=== PATIENT | male | born 1955 | race Caucasian/White ===

== ENCOUNTER 2023-07-31 10:55 | Outpatient (OUT) | payer MEDICARE, SELFPAY ==
--- NOTE | 2023-07-31 11:06 | XR_ITS ---
The [address] [address] Patient Name: VARSHA WHITE MRN: [id number] date: 1955 Sex: M Assigned Patient Location: [facility] Current Patient Location: Accession/Order Number: [id number] Exam Date: 07/31/2023 11:22 Report Date: 08/03/2023 07:47 At the request of: LOVE PORTER Procedure: XR abdomen 1V EXAMINATION: XR abdomen 1V HISTORY: Kidney Stone N20.0 COMPARISON: No relevant comparison available. FINDINGS: KIDNEY/URETER - RIGHT: Punctate nephrolithiasis KIDNEY/URETER - LEFT: Punctate nephrolithiasis PELVIS: No visible ureteral calcifications. Any visible calcifications favor phleboliths. BOWEL: No abnormal dilation or deviation. BONES: Moderate bilateral hip osteoarthritis. Moderate to severe degenerative changes of the spine OTHER: Negative. No abnormal gaseous collections. XR/XR abdomen 1V IMPRESSION: Bilateral nephrolithiasis Electronically authenticated by: OG BUNDY Date: 08/03/2023 07:47
== END 2023-07-31 10:56 | disposition home or self-care (01) ==
LOC: RAD 10:59
PROVIDERS: PCP Family Medicine; Visit Provider Urology
DX: N20.0 Calculus of kidney (principal)
CPT/HCPCS: 74018

== ENCOUNTER 2025-01-27 01:42 | Emergency (ER) | payer MEDICARE, SELFPAY ==
--- OUTSIDE RECORDS SUMMARY | 2024-09-28 05:00 | XMS_ITS ---
Author Organization The [facility] in [place] Address [address] [place] [address] Care Team Providers Care Opener Name Role Phone Matt MULLIGAN, Anderson Primary Care Provider Eleazar Devine Unavailable [phone] REASON FOR VISIT 1YEAR-PULMONARY NODULE, COUGH/CT Encounters Encounter Location Date Provider Diagnosis Pulmonary Medicine [place] [address] [place] [address] 09/28/2024 Eleazar Larose Plan Of Treatment No Information Progress Notes * Emmett MATOS ADOB: (69 yo M)Acc No.[id number]:09/28/2024 UNLOCKED PROGRESS NOTE Follow Up Patient: Mike Emmett LOVE :?Eleazarbarbara Larose DODOB:1955???Age:69 Y ???Sex:MaleDate:09/28/2024Phone:[phone]:[facility] [address] [place], [place]-[address]Pcp:Anderson Gutierrez MD Subjective: * Chief Complaints: * 1 . 1YEAR-PULMONARY NODULE, COUGH/CT. * Medical History: Objective: * Vitals: Assessment: Plan: * Treatment: * * Electronic signature of Eleazar Larose DO on 01/27/2025 at 03:22 AM ESTSign off status: PendingVisit Status:?OFF CANC (OFFICE CANCEL) * Provider: Woodrow Larose DO Date: 0 09/28/2024 Generated for Printing/Faxing/eTransmitting on:?01/27/2025 03:22 AM EST
--- OUTSIDE RECORDS SUMMARY | 2025-01-25 10:00 | XMS_ITS | Encounter Summary ---
Author Organization [facility] Address [address] [facility] [place] [place] [address] Care Team Providers Care Ab Initio Etl Developer Name Role Phone Anderson Gutierrez MD Primary Care Provider [phone] Reason for Visit * ReasonCommentsPost-op Follow-up Encounter Details DateTypeDepartmentCare Team (Latest Contact Info)Bdzsmhciayk61/17/2025 10:00 AM ESTOffice Visit [facility] [address] [place] [address] Rashad Richardson DO [address] [place] [address] Pseudophakia (Primary Dx); Primary open angle glaucoma (POAG) of left eye, mild stage Social History Tobacco UseTypesPacks/DayYears UsedDateSmoking Tobacco: NeverSmokeless Tobacco: NeverAlcohol UseStandard Drinks/WeekCommentsYes0 (1 standard drink = 0.6 oz pure alcohol)Sex and Gender InformationValueDate RecordedSex Assigned at BirthNot on fileLegal WcmHluz5704/23/2022 7:21 PM EDTGender IdentityNot on fileSexual OrientationNot on filedocumented as of this encounter Progress Notes * Rashad Richardson DO - 01/25/2025 10:00 AM EST Images from the original note were not included. Assessment/Plan Diagnoses and all orders for this visit: Pseudophakia - s/p CE OS (1mth): Patient should be close to off all post-op meds. Pt. received final refraction for this eye today. Primary open angle glaucoma (POAG) of left eye, mild stage - status post (s/p) Express shunt right eye (OD) and Hydrus shunt left eye (OS). Not on drops (gtts) at this time. documented in this encounter Plan of Treatment DateTypeDepartmentCare Team (Latest Contact Info)Rsfugrdhjqk63/19/2026 9:00 AM EDTOffice Visit [facility] [address] [place] [address] Rashad Richardson DO [address] [place] [address] documented as of this encounter Visit Diagnoses Diagnosis Pseudophakia- Primary Lens replaced by other means Primary open angle glaucoma (POAG) of left eye, mild stage documented in this encounter Care Teams Team MemberRelationshipSpecialtyStart DateEnd Date Anderson Gutierrez MD [address] [place] [address] PCP - GeneralFamily Medicine02/27/23documented as of this encounter
[2025-01-27 01:53] VITALS: BP 173/97; PULSE 95; O2SAT 98; BMI 35.5
--- NOTE | 2025-01-27 02:02 | XR_ITS ---
The [address] [address] Patient Name: VARSHA WHITE MRN: [id number] date: 1955 Sex: M Assigned Patient Location: ER Current Patient Location: Accession/Order Number: [id number] Exam Date: 01/27/2025 02:10 Report Date: 01/27/2025 09:07 At the request of: KAMERON GRIFFIN MD Procedure: XR finger RT min 2V RIGHT THUMB - 3 views CLINICAL DATA: Patient sliced right thumb with a table saw. COMPARISON: None Three views were obtained, all of which are essentially lateral. A 6 mm irregular density projects along the volar aspect of the distal interphalangeal joint. This is not a clear sesamoid or fracture fragment given the lack of an obvious donor site. It is uncertain if it could be a radiopaque foreign body. There does appear to be laceration and possibly an overlying bandage. The bony structures are otherwise intact. No dislocation is identified. Degenerative change at the first carpometacarpal joint and minor at the metacarpal phalangeal joint. XR/XR finger RT min 2V IMPRESSION: INDETERMINATE DENSITY ALONG THE VOLAR ASPECT OF THE DISTAL INTERPHALANGEAL JOINT OF THE THUMB. CLINICAL CORRELATION IS SUGGESTED. Impression dictated by: Lisandra Samuels M.D. 01/27/2025 9:07 AM Dictation Location: [place] [address] Electronically authenticated by: [id number] Y Date: 01/27/2025 09:07
[2025-01-27] MEDS: DIPHTH,PERTUSS(ACELL),TET VAC 0.5 ML SYRINGE IM (02:13)
[2025-01-27] MEDS: AMPICILLIN SODIUM/SULBACTAM NA 3 GM in 0.9 % SODIUM CHLORIDE 100 ML IV (02:15)
[2025-01-27] MEDS: OXYCODONE HCL/ACETAMINOPHEN 5MG/325MG 1 TAB PO (03:00)
--- OUTSIDE RECORDS SUMMARY | 2025-01-27 03:22 | XMS_ITS | Clinical Summary ---
Author Organization [employer] Address [facility] [address] [place] [address] Care Team Providers Care Knitted Garment Finisher Name Role Phone Unavailable Primary Care Provider Unavailabl e Allergies No known active allergies Medications MedicationSigDispense QuantityRefillsLast FilledStart DateEnd DateStatus tamsulosin (FLOMAX) 0.4 mg capsule 11/28/2021ctive mycophenolate (CELLCEPT) 500 mg tablet mycophenolate mofetil 500 mg tabletActive pyridostigmine (MESTINON) 60 mg tablet pyridostigmine bromide 60 mg tabletActive simvastatin (ZOCOR) 40 mg tablet simvastatin 40 mg tabletActive FLUoxetine (PROzac) 10 mg capsule fluoxetine 10 mg capsuleActive benzonatate (TESSALON PERLES) 200 mg capsule TAKE 1 CAPSULE BY MOUTH EVERY 8 HOURS FOR COUGH01/13/2022ctive buPROPion (WELLBUTRIN) 75 mg tablet bupropion HCl 75 mg tabletActive clotrimazole (LOTRIMIN) 1 % external solution clotrimazole 1 % topical solutionActive cyclobenzaprine (FLEXERIL) 5 mg tablet 3 (three) times a day.Active triamcinolone acetonide (KENALOG) 10 mg/mL injection Kenalog 10 mg/mL suspension for injection by inj routeActive Social History Tobacco UseTypesPacks/DayYears UsedDateSmoking Tobacco: Never AssessedAlcohol UseStandard Drinks/WeekCommentsYes1 (1 standard drink = 0.6 oz pure alcohol) occasionallyPHQ-2AnswerDate RecordedTotal Rdwww5333ChildcareAnswerDate TlvmrmppBjwujvxraWtyislu27/12/2019EmploymentAnswerDate RecordedEmploymentUnknown 07/21/2018Hunger ScreeningAnswerDate RecordedWithin the past 12 months we worried whether our food would run out before we got money to buy more.Never True02/12/2022Within the past 12 months the food we bought just didn't last and we didn't have money to get more.Never True02/12/2022Sex and Gender Information ValueDate RecordedSex Assigned at BirthNot on fileLegal RrvEhne2309/14/2014 12:10 PM EDTGender IdentityNot on fileSexual OrientationNot on file Last Filed Vital Signs Vital SignReadingTime TakenCommentsBlood Cuqnhjud553/7211/20/2022 1:08 PM EDT Jplky040711/20/2022 1:08 PM EDTTemperature--Respiratory Rate--Oxygen Saturation-- Inhaled Oxygen Concentration--Cskczl21.9 kg (218 lb)11/20/2022 1:08 PM EDTHeight 167.6 cm (5' 6 )11/20/2022 1:08 PM EDTBody Mass Index35.191 1:08 PM EDT Plan of Treatment Health MaintenanceDue DateLast DoneCommentsTobacco Uvppdjbmb41/04/1967DTaP,Tdap and Td Vaccines (1 - Tdap)1973Zoster (Shingles) Vaccine (1 of 2)1973 RSV ( or age 60+ yrs) (1 - Risk 50-74 years 1-dose series)2004 Depression Txufjdhko14/06/2022Fall Risk Bulksaotd88/06/2022 Adult BMI Fxungkgos47OVID-19 Vaccine (2024- season) 501/, 03/04/2021, 05/01/2020, Additional history existsInfluenza Zmawrtm9710/10/2024 Medical Devices Not on file Insurance
--- OUTSIDE RECORDS SUMMARY | 2025-01-27 03:22 | XMS_ITS | Clinical Summary ---
Author Organization [facility] Address [address] [place] [address] Care Team Providers Care Night Time Nanny Name Role Phone Anderson Gutierrez MD Primary Care Provider [phone] Allergies Active AllergyReactionsCriticalityNoted IbshXfuxyrmjMcvgatdpmvhtqGsmpp46/19/2024 Other Reaction(s): hives, muscle aches also muscle aches Medications MedicationSigDispense QuantityRefillsLast FilledStart DateEnd DateStatus travoprost (Travatan Z) 0.004 % solution ophthalmic solution Administer 1 drop into the right eye at rrdvlma9710/13/2023ctive tamsulosin (Flomax) 0.4 MG 24 hr capsule Take 0.4 mg by mouth Daily09/08/2022ctive mycophenolate (Cellcept) 500 MG tablet Take 500 mg by mouth in the morning and 500 mg before bedtime.09/08/2022ctive simvastatin (Zocor) 40 MG tablet Take 40 mg by mouth at phmazwx0809/08/2022ctive pyridostigmine (Mestinon) 60 MG tablet 60 mg by Nasogastric route in the morning and 60 mg in the evening and 60 mg before bedtime.09/08/2022ctive sildenafil (Viagra) 25 MG tablet Take 25 mg by mouth 1 (one) time each day at the same timeActive Tntyprvuqlp-Yrwzgrjg-Ydpqnllly 1-0.5-0.075 % solution Indications:Age-related nuclear cataract of left eyeAdminister 1 drop into affected eye(s) in the morning and 1 drop at noon and 1 drop in the evening and 1 drop before bedtime. 10 mL 5Active Active Problems ProblemNoted DateDiagnosed CmqgKarkfekwegxj41/05/2025Primary open angle glaucoma (POAG) of left eye, mild stage12/02/2024 Resolved Problems ProblemNoted DateDiagnosed DateResolved DateAge-related nuclear cataract of left eye5102/14/2024Intraoperative floppy iris syndrome (IFIS)12/02/2024 12/14/2024 Encounters DateTypeDepartmentCare MmuaOxqhafkiveo87/17/2025 10:00 AM ESTOffice Visit [facility] [address] [place] [address] Rashad Richardson, Pseudophakia (Primary Dx); Primary open angle glaucoma (POAG) of left eye, mild stage01/25/2025amboo flowsheet [facility] [address] [place] [address] Rashad Richardson, DO 01/25/20255519Tagpzx59/12/2025 10:15 AM ESTOffice Visit [facility] [address] [place] [address] Rashad Richardson, DO Pseudophakia (Primary Dx)12/21/2024amboo flowsheet [facility] [address] [place] [address] Rashad Richardson, DO 12/21/20246436Recgcx32/05/2025 11:00 AM ESTOffice Visit [facility] [address] [place] [address] Rashad Richardson, Pseudophakia (Primary Dx)12/14/2024amboo flowsheet [facility] [address] [place] [address] Rsahad Richardson, DO 12/14/20242511Lnwbkz01/22/2025 11:00 AM EDTOffice Visit [facility] [address] [place] [address] Rashad Richardson DO Age-related nuclear cataract of left eye (Primary Dx); Primary open angle glaucoma (POAG) of left eye, mild stage; Intraoperative floppy iris syndrome (IFIS)11/30/2024[facility] flowsheet [facility] [address] [employer] [facility] [employer] [address] [place] [address] Rashad Richardson DO 11/30/20241478Fhsxob73/29/2025 10:15 AM EDTOffice Visit [facility] [address] [employer] [facility] [employer] [facility] [facility] [employer] [facility] [address] [facility] [address] [place] [address] Hawa Mccarthy MD Primary open angle glaucoma (POAG) of both eyes, moderate stage (Primary Dx); Age-related nuclear cataract of left eye11/07/2024[facility] flowsheet [facility] [address] [facility] [address] [place] [address] Hawa Mccarthy MD 11/07/2024Travelfrom Last 3 Months Family History Medical HistoryRelationNameCommentsGlaucomaFatherRelationNameStatusComments Father Social History Tobacco UseTypesPacks/DayYears UsedDateSmoking Tobacco: NeverSmokeless Tobacco: Never Tobacco Cessation:Counseling Given: Yes Alcohol UseStandard Drinks/WeekCommentsYes0 (1 standard drink = 0.6 oz pure alcohol)Sex and Gender InformationValueDate RecordedSex Assigned at BirthNot on fileLegal ClfZilx4104/23/2022 7:21 PM EDTGender IdentityNot on fileSexual OrientationNot on file Last Filed Vital Signs Vital SignReadingTime TakenCommentsBlood Sqnskqac644/80002/27/2023 8:50 AM EST Qkfvu248702/27/2023 8:50 AM ESTTemperature--Respiratory Rate--Oxygen Saturation-- Inhaled Oxygen Concentration--Hydice315 kg (231 lb)02/27/2023 8:50 AM ESTHeight 167.6 cm (5' 6 )02/27/2023 8:50 AM ESTBody Mass Index37.28002/27/2023 8:50 AM EST Plan of Treatment DateTypeDepartmentCare Team (Latest Contact Info)Pnhsbuxhuif42/19/2026 9:00 AM EDTOffice Visit [facility] [address] [place] [address] Rashad Richardson DO [address] [place] [address] Health MaintenanceDue DateLast DoneCommentsCT Tthbruitehjc78/04/1956FIT-DNA 1955FIT1955FOBT1955 9925Tdysfkdlvkzjo96/04/1956Pneumococcal Vaccine: 65+ Years (1 of 1 - PCV)2004COVID-19 Vaccine (5 - 2024- season) 501/, 03/04/2021, 05/01/2020, Additional history existsInfluenza Vaccine (#1)6602Vlcbrrezynd67/19/4513034Colorectal Cancer Screening 01/27/2034 Procedures Procedure NamePriorityDate/TimeAssociated DiagnosisCommentsIOL BIOMETRY - OU - BOTH MSKEEnitoxv45/22/2025 11:00 AM EDT Age-related nuclear cataract of left eye [place] VISUAL FIELD - OU - BOTH VUFKMjmfjyl51/29/2025 11:10 AM EDT Primary open angle glaucoma (POAG) of both eyes, moderate stage from Last 3 Months Results * IOL Biometry - OU - Both Eyes (CPT 76988) (11/30/2024 11:00 AM EDT)Anatomical RegionLateralityModalityHeadOtherSpecimen (Source)Anatomical Location / LateralityCollection Method / VolumeCollection TimeReceived Time Narrative 12/02/2024 2:12 PM EDT Diagnosis: Cataract both eyes (OU) Testing Indication: Performed for preop measurements in the determination of an intraocular lens (IOL) for both eyes (OU) ?? Test Reliability: Good quality both eyes (OU) Interpretation: Good measurements for intraocular lens (IOL) calculation purposes. Calculation made for both eyes (OU). ?? Authorizing ProviderResult TypeResult StatusRashad COOPER ULTRASOUND Final Result * Ny Visual Field - OU - Both Eyes (11/07/2024 11:10 AM EDT)Anatomical RegionLateralityModalityHeadVisual Field Narrative 11/07/2024 11:10 AM EDT Right Eye Reliability was borderline. Progression has been stable. Foveal threshold was reduced. Left Eye Reliability was borderline. Progression has been stable. Foveal threshold was reduced. Findings include non-specific defects, generalized depression. Notes The visual field was examined and compared to previous hebert. Good cooperation noted. No significant change noted in either eye. ?? Authorizing ProviderResult TypeResult StatusHawa AVILEZ VISUAL FIELD Final Result from Last 3 Months Insurance Care Teams Team MemberRelationshipSpecialtyStart DateEnd Anderson Gutierrez MD [address] [place] [address] PCP - GeneralFamily Medicine02/27/23
--- OUTSIDE RECORDS SUMMARY | 2025-01-27 03:22 | XMS_ITS | Encounter Summary ---
Author Organization [facility] Address [address] [facility] [place] [address] Care Team Providers Care Candy Cooker Helper Name Role Phone Anderson Gutierrez MD Primary Care Provider [phone] Encounter Details DateTypeDepartmentCare Team (Latest Contact Info)Jncmebcwgtd95/17/2025amboo flowsheet [facility] [address] [place] [address] Rashad Richardson DO [address] [place] [address] Social History Tobacco UseTypesPacks/DayYears UsedDateSmoking Tobacco: NeverSmokeless Tobacco: NeverAlcohol UseStandard Drinks/WeekCommentsYes0 (1 standard drink = 0.6 oz pure alcohol)Sex and Gender InformationValueDate RecordedSex Assigned at BirthNot on fileLegal XvuSowc0304/23/2022 7:21 PM EDTGender IdentityNot on fileSexual OrientationNot on filedocumented as of this encounter Plan of Treatment DateTypeDepartmentCare Team (Latest Contact Info)Pkofqwrcrql30/19/2026 9:00 AM EDTOffice Visit [facility] [address] [place] [address] Rashad Richardson DO [address] [place] [address] documented as of this encounter Visit Diagnoses Not on filedocumented in this encounter Care Teams Team MemberRelationshipSpecialtyStart DateEnd Date Anderson Gutierrez MD [address] [place] [address] PCP - GeneralFamily Medicine02/27/23documented as of this encounter
--- OUTSIDE RECORDS SUMMARY | 2025-01-27 03:22 | XMS_ITS | Encounter Summary ---
Author Organization [facility] Address [address] [place] [address] Care Team Providers Care Machine Ii Trimmer Name Role Phone Anderson Gutierrez MD Primary Care Provider Encounter Details DateTypeDepartmentCare Team (Latest Contact Info)Wwqcaejucai54/17/2025Travel Social History Tobacco UseTypesPacks/DayYears UsedDateSmoking Tobacco: NeverSmokeless Tobacco: NeverAlcohol UseStandard Drinks/WeekCommentsYes0 (1 standard drink = 0.6 oz pure alcohol)Sex and Gender InformationValueDate RecordedSex Assigned at BirthNot on fileLegal ItkTzot6304/23/2022 7:21 PM EDTGender IdentityNot on fileSexual OrientationNot on filedocumented as of this encounter Plan of Treatment DateTypeDepartmentCare Team (Latest Contact Info)Rwygpwubquj69/19/2026 9:00 AM EDTOffice Visit [facility] [address] [place] [address] Rashad Richardson, DO [address] [place] [address] documented as of this encounter Visit Diagnoses Not on filedocumented in this encounter Care Teams Team MemberRelationshipSpecialtyStart DateEnd Date Anderson Gutierrez MD [address] [place] [address] PCP - GeneralFamily Medicine02/27/23documented as of this encounter
--- OUTSIDE RECORDS SUMMARY | 2025-01-27 03:22 | XMS_ITS | Patient Health Record ---
Author Organization [facility] [place] Address [address] [place] [address] Care Team Providers Care Watch Engineer Name Role Phone Anderson Gutierrez MD Primary Care Provider Eleazar Devine [phone] Allergies No Known Allergies Reason For Referral No Information Medications Medication SIG (Take, Route, Frequency, Duration) Notes Start Date End Date Status Flomax 0.4 MG 1 capsule Orally Once a day ActiveMycophenolate Mofetil 500 MG1 tablet Orally Twice a dayActive pyRIDostigmine [place] 60 MG1 tablet Orally every 4 hrsActiveSimvastatin 40 MG1 tablet in the evening Orally Once a dayActive Immunizations Vaccine Route Administration Date Status Comme nts SARS-COV-2 (COVID 19) bivale nt 30 mcg/0.3 ml dose Unknown 03/08/2022 Administered Social History Tobacco Use: Social History Observation Description Date Details (start date - stop date) Never Smoker NA - NA Tobacco Use/Smoking Question Answer Notes Patient is a nonsmoker Tobacco Control (Standard) Question Answer Notes Tobacco use: Nonsmoker Problems Problem Type SNOMED Code ICD Code Onset Dates Problem Status W/U Status Risk Notes Problem Obesity (394062384) Obesity, unspecified (E66.9) ActiveconfirmedProblemBronchiolectasis (62640155)Bronchiectasis, uncomplicated (J47.9)ActiveconfirmedProblemPulmonary fibrosis (77231326)Pulmonary fibrosis, unspecified (J84.10)ActiveconfirmedProblemSolitary pulmonary nodule (989011049) Solitary pulmonary nodule (R91.1)ActiveconfirmedProblemMyasthenia gravis (61667906)Myasthenia gravis (G70.00)Activeconfirmed05/21/2022: NIF -48lbV2X ; 06/19/2022: NIF -98zyK9RSeeznxhCwwnsgzskup sleep apnea (75557799)Obstructive sleep apnea (G47.33)ActiveconfirmedProblemRestrictive lung disease (07573044) Restrictive lung disease (J98.4)ActiveconfirmedProblemMultiple pulmonary nodules (111820544)Multiple pulmonary nodules (R91.8)ActiveconfirmedProblem Laryngopharyngeal reflux (283763865)Laryngopharyngeal reflux (K21.9)Active confirmedProblemCalcified lymph nodes (897203624)Calcified lymph nodes (I89.8) ActiveconfirmedProblemBody mass index 35.00 to 39.99 (655336106670746)Body mass index [BMI] 37.0-37.9, adult (Z68.37)ActiveconfirmedProblemChronic cough (80607093)Chronic cough (R05.3)Activeconfirmed Encounters Encounter Location Date Provider Diagnosis Pulmonary Medicine [place] [address] [place] [address] 09/15/2024 Eleazar Larose Plan Of Treatment Pending Test Test Name Order Date CT Chest w/o contrast 09/30/2023 Insurance Providers Payer Name Payer Address Payer Phone Subscriber Number Group Number Insured Name Patient Relationship to Insured Coverage Start Date Coverage End Date [employer]AN [address] [place] [address] [id number] Emmett Matos Self - patient is the insured Medical (General) History Medical History History ICD Code Myasthenia gravis G70.00 Multiple pulmonary nodules R91.8 Calcified lymph nodes I89.8 Obstructive sleep apnea G47.33 Umbilical hernia K42.9 Bilateral nephrolithiasis N20.0 Benign prostatic hypertrophy N40.0 Erectile dysfunction N52.9 Major depression in remission F32.5 Occipital neuralgia M54.81 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
--- OUTSIDE RECORDS SUMMARY | 2025-01-27 03:22 | XMS_ITS | Clinical Summary ---
Author Organization [facility] Address [address] [place] [address] Care Team Providers Care Sales Office Manager Name Role Phone Mellissa Sampson MD Primary Care Provider [phone] Allergies No known active allergies Medications MedicationSigDispense QuantityRefillsLast FilledStart DateEnd DateStatus Multivitamin capsule Take 1 capsule by mouth once daily.Active mycophenolate Mofetil (CELLCEPT) 500 mg tablet Take 2 tablets by mouth twice daily. 120 tablet ctive simvastatin (ZOCOR) 20 mg tablet Take 20 mg by mouth daily at bedtime.Active meloxicam (MOBIC) 15 mg tablet Take 15 mg by mouth once daily.Active cyclobenzaprine (FLEXERIL) 10 mg tablet Take 10 mg by mouth three times daily as needed.Active predniSONE (DELTASONE) 1 mg tablet Take 2 tablets by mouth once daily. for one month then take as directed 200 tablet Active predniSONE (DELTASONE) 10 mg tablet Indications:Ocular myasthenia gravis (HCC)Take 1 tablet by mouth once daily as needed (worsening double vision). 90 tablet Active mycophenolate Mofetil (CELLCEPT) 500 mg tablet Take 2 tablets by mouth once daily. 180 tablet Active pyridostigmine (MESTINON) 60 mg tablet Take 1 tablet by mouth four times daily as needed. 120 tablet Active pyridostigmine (MESTINON) 60 mg tablet Indications:Myasthenia gravis (HCC)TAKE 1 TABLET BY MOUTH FOUR TIMES DAILY NEEDED. 120 tablet Active Active Problems ProblemNoted DateDiagnosed DateLung knbllbo6708/09/2012Plantar kflppnevn33/ Fitting and adjustment of orthopedic ntqeqs3006/27/2009Pain in joint, ankle and foot06/16/2009Pain in joint, site alkbkffbgam44/12/2010 Family History Medical HistoryRelationCommentsProstate CancerBrotherGlaucomaFatherother[Other] OtherRelationStatusCommentsBrotherFatherOther Social History Tobacco UseTypesPacks/DayYears UsedDateSmoking Tobacco: NeverSmokeless Tobacco: NeverAlcohol UseStandard Drinks/WeekCommentsYes0 (1 standard drink = 0.6 oz pure alcohol)occSex and Gender InformationValueDate RecordedSex Assigned at BirthNot on fileLegal WznXdkd21/02/2012 8:58 AM ESTGender IdentityNot on fileSexual OrientationNot on file Last Filed Vital Signs Vital SignReadingTime TakenCommentsBlood Dfhnhqqi659/8602/15/2016 11:19 AM EST Nlikh660102/15/2016 11:19 AM CAOTrtktlfnhll45.4 ??C (97.6 ??F)08/09/2012 9:28 AM EDTRespiratory Nxbo814802/26/2015 9:50 AM ESTOxygen Srejjdsdtf90%07/04/2014 3:28 PM EDTInhaled Oxygen Concentration--Qtcljw860.3 kg (230 lb)07/03/2015 4:43 PM MBBYbndzd947.6 cm (5' 6 )07/03/2015 4:43 PM EDTBody Mass Index37.1205 4:43 PM EDT Plan of Treatment Health MaintenanceDue DateLast DoneCommentsAnxiety Xboxfkhvw27/04/1973Depression Gcvnrwrfv25/04/1973Hepatitis C Mstvsgxih68/04/1973DTaP,Tdap,Td Vaccine (1 - Tdap)1973Lipid Akpwdtjnh48/04/1990CT Ppsrjjcddviy08/04/2000Cologuard (FIT-DNA)04/13/19999241Ltquyornoty73/04/2000Colorectal Cancer Jyjxpcxeu47/04/2000 Fecal Occult Blood04/13/19990282Qcewnsxcnlglo59/04/2000Pneumococcal Vaccine: 50+ (1 of 1 - PCV)2004Shingrix Vaccine (1 of 2)2004Diabetes Screening , 07/09/2012, 07/09/2012dvance Directive Discussion 02/10/2024ovid-19 Vaccine (2024- season)2024Influenza Vaccine (#1) 2024RSV Vaccine (1 - 1-dose 75+ series)2029 Procedures Procedure NamePriorityDate/TimeAssociated DiagnosisCommentsCOMPREHENSIVE METABOLIC CYSWYHklwcut18/16/2013 11:49 AM EDT Myasthenia from Last 3 Months or Most Recently Relevant to Health Maintenance Results * COMP METABOLIC PANEL (10/25/2012 11:49 AM EDT)ComponentValueRef RangeTest MethodAnalysis TimePerformed AtPathologist SignatureProtein, Total7.46.0 - 8.4 g/dLMEM[facility]IAL [facility] SYSTEM LABORATORYAlbumin4.73.5 - 5.0 g/dLMEMORIAL [facility] SYSTEM WRUXOBDNMSNantofk36.28.5 - 10.5 mg/dLMEMORIAL [facility]ALTH SYSTEM LABORATORY Bilirubin, Total0.30.0 - 1.5 mg/dLMEM[facility]IAL [facility] SYSTEM LABORATORYAlkaline Qgsxhhefyfs9522 - 150 U/LCOHIOHEALTH PSVJEXHZADFIJ093 - 40 U/L [facility] VLPLMFQQHRGkmkwmr8730 - 100 mg/dLMEMORIAL [facility] SYSTEM AWCZLVMFTVGLG5561 - 25 mg/dLMEM[facility]IAL [facility] LABORATORYCreatinine0.810.70 - 1.40 mg/dLMEMORIAL [facility]ALTH SYSTEM JDLDSANWYAItqbte625388 - 146 mmol/L [facility] LABORATORYPotassium4.23.5 - 5.0 mmol/LCOHIOHEALTH OBDQMDARKYIwusmuqe5146 - 110 mmol/LCOHIOHEALTH ZBFQKUAUNXHC260 23 - 32 mmol/LCMAGRUDER MEMORIAL [facility] MAIN LABORATORYAnion Lsx958 - 15 mmol/L [facility] FBGMXWSVTCHLJ413 - 50 U/LCOHIOHEALTH LABORATORYeGFR->60[facility] LABORATORYeGFR-All Other Races>60.[facility] LABORATORYComment: eGFR (Estimated GFR) Units of measure: mL/min/1.73 meters squared eGFR is derived from the reexpressed MDRD Study equation using the following parameters: serum creatinine, age, gender and race. The creatinine assay has been calibrated to be traceable to IDMS. An eGFR <60 mL/min/1.73m2 for >3 months is consistent with chronic kidney disease. Refer to KDOQI guidelines for clinical interpretation. Specimen (Source)Anatomical Location / LateralityCollection Method / Volume Collection TimeReceived TimeBlood specimen (specimen)BLOOD SPECIMEN / Unknown 10/25/2012 11:49 AM EDT10/25/2012 11:51 AM EDT Narrative Authorizing ProviderResult TypeResult StatusJinny O TaveeLABORATORYFinal Result Performing OrganizationAddressCity/State/ZIP CodePhone Number [facility] [address] [place] [address] from Last 3 Months or Most Recently Relevant to Health Maintenance Insurance Care Teams Team MemberRelationshipSpecialtyStart DateEnd Date Mellissa Sampson MD [address] [place] [address] PCP - GeneralFamily Medicine07/05/14
--- OUTSIDE RECORDS SUMMARY | 2025-01-27 03:22 | XMS_ITS | Clinical Summary ---
Author Organization [facility] Address [address] [place] [address] Care Team Providers Care Test Case Developer Name Role Phone Unavailable Primary Care Provider Unavailabl e Social History Tobacco UseTypesPacks/DayYears UsedDateSmoking Tobacco: Never AssessedSex and Gender InformationValueDate RecordedSex Assigned at BirthNot on fileLegal Sex Male08/07/2021 9:48 PM EDTGender IdentityNot on fileSexual OrientationNot on file Last Filed Vital Signs Vital SignReadingTime TakenCommentsBlood Pressure--Pulse--Temperature-- Respiratory Rate--Oxygen Saturation--Inhaled Oxygen Concentration--Genkos85.8 kg (220 lb)12/24/2018 10:53 AM HILVtjgmp047.6 cm (5' 6 )06/09/2019 8:39 AM EDTBody Mass Index35.51102/23/2018 10:53 AM EST Plan of Treatment Not on file
[2025-01-27] MEDS: BACITRACIN OINTMENT 28.4 GM TUBE 1 APPLIC TOPICAL (03:32)
--- NOTE | 2025-01-27 03:43 | ED.WOUNDLAC1 ---
HPI - Wound/Laceration General Chief Complaint: Wound/Laceration Stated Complaint: SPLIT RIGHT THUMB IN HALF Time Seen by Provider: 01/27/25 01:54 Source: patient Mode of arrival: walk-in Limitations: no limitations History of Present Illness HPI narrative: This 69-year-old male who is right-hand dominant and also partially blind due to glaucoma presents for evaluation after he cut his thumb with his tablesaw. According to the patient he was making a cutting board and accidentally cut his thumb longitudinally perpendicular to the thumbnail. He sustained approximately 3 cm avulsion of the entire palmar surface of the right thumb. Moderate active bleeding was noted at the time he arrived. He was able to bend at the distal metacarpal but had decreased sensation to the distal end of his finger. He does not know the date of his last tetanus shot. No additional injuries or complaints. Related Data Allergies Allergy/AdvReac Type Severity Reaction Status Date / Time No Known Drug Allergies Allergy Verified 01/27/25 01:53 Review of Systems ROS Status of ROS 10 or more systems reviewed and unremarkable except as noted in history and below PFSH PFSH Social History Little interest or pleasure in doing things: not at all Feeling down, depressed, or hopeless: not at all Exam Narrative Exam Narrative: Vital signs and Nursing Notes reviewed: Patient has elevated pulse at 95, elevated blood pressure at 173/97, he is not hypoxic with pulse ox of 98% on room air General: Awake, alert, oriented, GCS 15 HEENT: Normocephalic atraumatic, mucous membranes are moist and pink, eyes are clear, normal conjunctiva, vision is grossly intact Chest: Lungs are clear to auscultation with good air entry, there is no wheezing rhonchi or rales appreciated no accessory muscle use, patient is speaking in complete sentences-no chest wall tenderness to palpation CVS: Regular rate and rhythm S1-S2, no murmurs rubs or gallops, pulses are brisk and equal bilaterally Extremities: Made to the right thumb. There is an approximately 3 cm skin and muscle layer thickness avulsion of the right thumb from the mid proximal phalanx to the end of the thumb. Moderate amount of macerated tissue was present at the medial aspect. Patient is able to flex at the distal phalanx, decreased sensation is noted at the end of the thumb. The flap and the distal end of the thumb had a capillary refill of 3 to 4 seconds. Moderate active bleeding noted. No bone or appreciable tendon noted on visual inspection. Skin: Normal in appearance without rash,pallor, petechiae or purpura Neuro: No focal deficits Constitutional Vital Signs, click to edit/add: Last Vital Signs Pulse 95 H 01/27/25 01:53 Resp 01/27/25 01:53 BP 173/97 H 01/27/25 01:53 Pulse Ox 98 01/27/25 01:53 O2 Del Method Room Air 01/27/25 01:53 Course Vital Signs Vital signs: Vital Signs Pulse Rate 95 H 01/27/25 01:53 Respiratory Rate 01/27/25 01:53 Blood Pressure 173/97 H 01/27/25 01:53 Pulse Oximetry 98 01/27/25 01:53 Oxygen Delivery Method Room Air 01/27/25 01:53 Pulse Rate 95 H 01/27/25 01:53 Respiratory Rate 01/27/25 01:53 Blood Pressure 173/97 H 01/27/25 01:53 Pulse Oximetry 98 01/27/25 01:53 Oxygen Delivery Method Room Air 01/27/25 01:53 MDM - Wound/Laceration MDM Narrative Medical decision making narrative: This 69-year-old male who is right-hand dominant presents for evaluation of a avulsion laceration to the right thumb that he sustained while cutting wood with a table saw. A large avulsion laceration was sustained. He has decreased sensation to the distal end of the thumb with reasonable capillary refill and the flap that was avulsed and the remainder of the thumb. An IV was placed and he was medicated with 3 g of IV Unasyn, tetanus was updated, the thumb was closed with a double layer closure. The flap remained viable looking. The capillary refill after the suture repair was similar to before it was started. 20 sutures were placed into the flap for closure as well as 4 Vicryl sutures to approximate the flap to the thumb. He was given a dose of Percocet for pain prior to discharge and 2 Percocet were dispensed with him at the time of discharge. He will be discharged home with recommendation for close follow-up and a wound check in 24 to 48 hours, oral Augmentin, oral Percocet, I also suggested that he soak the hand in warm Epsom salt water several times a day to keep it clean and monitor it closely for signs of infection and return to the emergency department for signs of infection or if it appears that the flap is failing and becomes black or pale. He was given referral information for outpatient hand surgery. Overall he tolerated the procedure well and was discharged home in stable condition. Discharge Plan Discharge Chief Complaint: Wound/Laceration Clinical Impression: Avulsion of skin of thumb, Laceration of thumb Patient Disposition: Home, Self-Care Time of Disposition Decision: 03:23 Condition: Good Print Language: Ethiopian Instructions: Care For Your Stitches (ED), Laceration (ED), Finger Laceration (ED) Additional Instructions: Sutures can be removed in 12 to 14 days. Please follow-up with hand surgery as discussed. Use antibiotics as directed. Use ice, Tylenol, Motrin and/or Percocet as needed for pain. Elevating your hand above your head will help to relieve some of the throbbing. Please return back to the emergency department or follow-up with your family physician in 24 to 48 hours for a wound check. Return to the emergency department for redness, swelling, severe pain, fever, red streaks up your arm or any concerns. Referrals: AMARJIT SALGADO [Physician, Family Practice] - 1 week Referral Note: [phone] KYLE PEARSON [Primary Care Provider, [facility]] - 1 week Procedures ED Procedure Instructions Procedures Procedures: Procedure note: Thumb laceration repair; an x-ray of the thumb was ordered, it does not show any bony fracture but does show soft tissue damage. A digital block was performed with 1% lidocaine. The thumb was copiously irrigated with normal saline and Betadine. When anesthesia was obtained for 4-0 Vicryl sutures were placed into the flap to approximate the layers of the thumb. 20, 3-0 Ethilon sutures were then placed into the thumb to approximate the flap with the remainder of the thumb. The flap remained pink with mild delayed capillary refill. A bulky bacitracin dressing was placed by myself and a Curlex dressing was placed over the bacitracin and Vaseline gauze dressing. Patient tolerated procedure well.
[2025-01-27] MEDS: OXYCODONE HCL/ACETAMINOPHEN 5MG/325MG 2 TAB PO (03:55)
--- NOTE | 2025-01-27 04:17 | PC.NURSE ---
i gave this patient verbal and written discharge orders along with 2 Rx and medication to go home with and this patient voices yes to understanding these. at time of discharge this patient was standing by the door with his jacket on and says my ride his here. patient refused discharge vitals, also at that time voices no other concerns, needs and shows no signs of distress. i informed when taking pain medication do not operate automobile, machinery, and go to work, plus must take a stool softer. this patient voices yes to understanding these instruction when taking pain medication
== END 2025-01-27 04:16 | disposition home or self-care (01) ==
PROVIDERS: Emergency Provider Emergency Medicine; PCP Family Medicine
DX: S61.011A Laceration without foreign body of right thumb without damage to nail, initial encounter (principal); W31.2XXA Contact with powered woodworking and forming machines, initial encounter; Z23 Encounter for immunization; H40.9 Unspecified glaucoma; H54.7 Unspecified visual loss
CPT/HCPCS: 12002; 73140; 90471; 90715; 96365; 96375; 99284; J0295; J2405